=== PATIENT | female | born 1985 | race Caucasian/White ===

== ENCOUNTER 2018-07-31 11:45 | Emergency (ER) | payer OTHER ==
[~2018-07-31] VITALS: Ht 162.6 cm; Wt 52.0 kg
[2018-07-31 13:45] VITALS: BP 125/60
[2018-07-31] MEDS ORDERED: BACITRACIN ZINC OINT UDPKT TOP ONE (13:45)
== END 2018-07-31 13:45 | disposition home or self-care (01) ==
LOC: ER 11:45
DX: S51.852A Open bite of left forearm, initial encounter (principal); W54.0XXA Bitten by dog, initial encounter; Y93.89 Activity, other specified; Y92.89 Other specified places as the place of occurrence of the external cause
CPT/HCPCS: 99282

== ENCOUNTER 2020-09-12 15:37 | Emergency (ER) | payer OTHER | END 2020-09-12 17:53 | disposition left against medical advice (07) | LOC: ER 15:37 | DX: Z53.21 Procedure and treatment not carried out due to patient leaving prior to being seen by health care provider (principal); R55 Syncope and collapse; R53.1 Weakness ==